=== PATIENT | female | born 1985 | race Caucasian/White ===

== ENCOUNTER 2021-04-11 17:50 | Emergency (ER) | payer OTHER, SELFPAY ==
[2021-04-11 17:57] VITALS: BP 119/79; PULSE 88; RESP 20; TEMP 36.9; O2SAT 99
--- NOTE | 2021-04-11 17:58 | ED.URI ---
HPI - URI/Sore Throat General Chief Complaint: Upper Respiratory Infection Stated Complaint: Chest hutson, coughing, mucus when coughing Time Seen by Provider: 04/11/21 17:58 Source: patient and RN notes reviewed History of Present Illness HPI Narrative: Patient is a 36-year-old female who presents the urgent care with complaints of cough and increased mucus. Patient states that started yesterday and she has had this recurrent every 3 months. Patient states that 3 months ago they placed her on a Z-Familia and it knocked it out . Patient denies of any fever, nausea, vomiting, wheezing. Patient denies of any known contact with Covid but she is a certified nursing assistant instructor. States that she has been taking immune plus today without any improvements. No other acute complaints. No acute distress noted. Patient read the plan of care. Some parts of this dictation were generated by voice recognition software and may contain typographical and/or grammatical inaccuracies. Related Data Home Medications Medication Instructions Recorded Confirmed etonogestrel-ethinyl estradiol 1 vag ring VAGINAL 04/11/21 [NuvaRing] Allergies Allergy/AdvReac Type Severity Reaction Status Date / Time No Known Allergies Allergy Unknown Verified 04/11/21 18:27 Review of Systems Review of Systems: CONSTITUTIONAL: Denies fever, chills, or sweats. EYES: Denies visual changes, redness, or discharge. ENT: Denies rhinorrhea, congestion, sore throat, or otalgia. Reports of postnasal drainage CARDIOVASCULAR: Denies chest pain, palpitations, or edema. RESPIRATORY: Reports of cough without dyspnea GASTROINTESTINAL: Denies abdominal pain, nausea, vomiting, or diarrhea. GENITOURINARY: Denies dysuria or hematuria. SKIN: Denies rash or itching. MUSCULOSKELETAL: Denies back pain, joint pain, or myalgia. NEUROLOGIC: Denies headache, numbness, or weakness. All other systems reviewed are negative, except as documented in HPI. PMFSH Comments At the time of my signature, I reviewed and agree with the nursing past medical, surgical, social, and family history. There is no relevant family history pertinent to the patient complaint. Exam Narrative: GENERAL: This is a well-nourished, well-developed patient, in no apparent distress. HEAD: normocephalic, atraumatic. EYES: PERRL. Sclera clear/white. Vision is grossly intact. EARS: External ears normal, auditory canals clear and without drainage, TMs normal without perforation. Hearing grossly intact. NOSE: External nose normal with no obvious nasal discharge, nares without redness, no rhinorrhea. THROAT: Mucous membranes moist, posterior pharynx clear. Mild postnasal drainage NECK: Neck supple, non-tender without lymphadenopathy CARDIOVASCULAR: Regular rate and rhythm without murmurs, gallops, or rubs. RESPIRATORY: Clear to auscultation. Breath sounds equal bilaterally. No wheezes, rales, or rhonchi. SKIN: warm, intact with no suspicious lesions or rash, good texture and turgor. NEURO: awake, alert, and oriented to person, place and time. There were no obvious focal neurologic abnormalities. EXTREMITIES: No clubbing, cyanosis, or edema. Course Vital Signs Vital signs: Vital Signs Temperature 98.4 F 04/11/21 17:57 Pulse Rate 88 04/11/21 17:57 Respiratory Rate 20 04/11/21 17:57 Blood Pressure 119/79 04/11/21 17:57 Pulse Oximetry 99 04/11/21 17:57 Temperature 98.4 F 04/11/21 17:57 Pulse Rate 88 04/11/21 17:57 Respiratory Rate 20 04/11/21 17:57 Blood Pressure 119/79 04/11/21 17:57 Pulse Oximetry 99 04/11/21 17:57 Reviewed MDM - URI/Sore Throat MDM Narrative Medical decision making narrative: Discussed with the patient that a 1 day history of upper respiratory symptoms are typically viral. Symptoms for recurrent 21 days are treated with antibiotics. Antibiotics are not necessary at this time. Advised her to use Mucinex [id number] in conjunction with Zyrtec/Claritin and Flonase nasal s
== END 2021-04-11 18:35 | disposition home or self-care (01) ==
PROVIDERS: Emergency Provider Nurse Practitioner Family; PCP Family Medicine
DX: R05 Cough (principal)
CPT/HCPCS: 99213; G0463